=== PATIENT | female | born 1980 | race Caucasian/White ===

== ENCOUNTER 2016-02-27 22:21 | Emergency (ER) | payer MEDICAID ==
[2016-02-27 23:57] VITALS: BP 145/107
[2016-02-28 04:02] LABS: Bilirubin,Urine NEG (Negative); Blood,Urine LG (Negative); Ketones,Urine NEG (Negative); Leukocyte Esterase,Urine LG (Negative); Mucus,Urine 1+ /HPF; Nitrite,Urine POS (Negative); Urobilinogen,Urine < 2.0 mg/dL (<2.0)
[2016-02-28 04:08] LABS: RBC,Urine > 182.0 /HPF (0.0-6.0); WBC,Urine > 182.0 /HPF (0.0-6.0)
== END 2016-02-28 19:00 | disposition left against medical advice (07) ==
LOC: ED 22:21
DX: R10.9 Unspecified abdominal pain (principal); Z53.21 Procedure and treatment not carried out due to patient leaving prior to being seen by health care provider
CPT/HCPCS: 81001; 81025

== ENCOUNTER 2016-03-26 11:03 | Outpatient (CLI) | payer MEDICAID ==
--- NOTE | 2016-03-26 15:16 | Mammography Report ---
BILATERAL DIGITAL SCREENING MAMMOGRAM with CAD: 03/26/16 11:03:00 CLINICAL: Baseline screening.History of bilateral reduction mammoplasty. FINDINGS: There are bilateral scattered areas of fibroglandular density.Minimal bilateral benign scar.No mass, architectural distortion or suspicious calcifications. IMPRESSION: No mammographic evidence of malignancy. BI-RADS CATEGORY: 2 - - Benign RECOMMENDATION: Routine mammographic screening in one year. COMMENT: Patient follow-up letters are generated by our [employer] application.
== END 2016-03-26 11:04 | disposition home or self-care (01) ==
LOC: SPVWC 11:03
PROVIDERS: ATTEND Family Medicine
DX: Z12.31 Encounter for screening mammogram for malignant neoplasm of breast (principal)
CPT/HCPCS: 77067; G0202

== ENCOUNTER 2019-04-03 11:00 | Outpatient (CLI) | payer MEDICAID | END 2019-04-03 11:01 | disposition home or self-care (01) | LOC: SLR 11:00 | PROVIDERS: ATTEND Otolaryngology | DX: G47.33 Obstructive sleep apnea (adult) (pediatric) (principal) | CPT/HCPCS: G0399 ==

== ENCOUNTER 2020-01-04 08:56 | Outpatient (CLI) | payer MEDICAID ==
--- NOTE | 2020-01-04 13:16 | Fluoroscopy Report ---
Upper GI HISTORY: K30 FUNCTIONAL DYSPEPSIA. Preoperative evaluation for bariatric surgery Technique: Single and double contrast barium technique utilized to evaluate the esophagus, stomach, and duodenal C-loop. Findings: To begin the exam, swallowing was evaluated in the lateral position under direct fluorosco py. Swallowing was normal. No mucosal irregularity, mass, mass effect, or critical stenosis. There were occasional abnormal te rtiary contractions as seen with dysmotility. There was severe gastroesophageal reflux reaching the u pper esophagus. Impression: Severe gastroesophageal reflux and mild esophageal dysmotility. Fluoroscopic time: 1.3 minutes Number of fluoroscopic images: 16 Signer Name: Eric Livingston MD Signed: 01/04/2020 1:12 PM Workstation Name: [id number]
== END 2020-01-04 08:57 | disposition home or self-care (01) ==
LOC: FLUORO 08:56
PROVIDERS: ATTEND Surgery
DX: K21.00 Gastro-esophageal reflux disease with esophagitis, without bleeding (principal)
CPT/HCPCS: 74246

== ENCOUNTER 2020-01-09 06:35 | Day surgery (SDC) | payer MEDICAID ==
[2020-01-09] MEDS ORDERED: SODIUM CHLORIDE 0.9% 1000 ML 1,000 ML IV SCH (07:00)
[2020-01-09] MEDS ORDERED: WATER FOR IRRIG STERILE 250 ML BOTTLE IR ONE (07:38)
[2020-01-09] MEDS ORDERED: WATER FOR IRRIG STERILE 1,000 ML BOTTLE ONE (07:38)
--- NOTE | 2020-01-09 07:40 | Anesthesia Consultation ---
Anesthesia Consult and Med Hx Date of service: 01/09/20 - Airway Anesthetic Teeth Evaluation: Crowns ROM Head & Neck: Adequate Mental/Hyoid Distance: Adequate Mallampati Class: Class II Intubation Access Assessment: Probably Good - Pre-Operative Health Status ASA Pre-Surgery Classification: ASA3 Proposed Anesthetic Plan: MAC - Pulmonary Hx Smoking: No Hx Asthma: No Hx Respiratory Symptoms: No SOB: No COPD: No Home Oxygen Therapy: No Hx Pneumonia: No Hx Sleep Apnea: Yes - Cardiovascular System Hx Hypertension: No Hx Coronary Artery Disease: No Hx Heart Attack/AMI: No Hx Angina: No Hx Percutaneous Transluminal Coronary Angioplasty (PTCA): No Hx Cardia Arrhythmia: No Hx Pacemaker: No Hx Internal Defibrillator: No Hx Valvular Heart Disease: No Hx Heart Murmur: No Hx Peripheral Vascular Disease: No - Central Nervous System Hx Neuromuscular Disorder: No Hx Seizures: No CVA: No Hx Back Pain: No Hx Psychiatric Problems: Yes (anexity ) - Gastrointestinal Hx Ulcer: No Hx Gastroesophageal Reflux Disease: Yes - Endocrine Hx Renal Disease: No Hx End Stage Renal Disease: No Hx Cirrhosis: No Hx Liver Disease: No Hx Insulin Dependent Diabetes: No Hx Non-Insulin Dependent Diabetes: No Hx Thyroid Disease: No Hx Hypothyroidism: No Hx Hyperthyroidism: No - Hematic Hx Anemia: No Hx Sickle Cell Disease: No - Other Systems Hx Alcohol Use: No Hx Substance Use: No Hx Cancer: No Hx Obesity: Yes
--- NOTE | 2020-01-09 07:41 | Anesthesia Day of Surgery ---
Anesthesia Day of Surgery - Day of Surgery Patient Examined: Yes Patient H&P Reviewed: Yes Patient is NPO: Yes
[2020-01-09] MEDS ORDERED: LIDOCAINE MPF (2%) 20 MG/1 ML VIAL 5 ML ONE (08:21)
[2020-01-09] MEDS ORDERED: propofoL 200 MG/20 ML VIAL IV ONE ×2 (08:21→08:52)
--- NOTE | 2020-01-09 08:38 | Discharge Summary ---
Providers - Providers Date of Admission: 01/09/2020 Date of discharge: 01/09/20 Attending physician: KYLE BAR MD Primary care physician: ALLYSSA CERVANTES Hospitalization Reason for admission: EGD Condition: Good Procedures: EGD Hospital course: Pt presented for a pre-op EGD for up coming bariatric surgery. She had an uncomplicated procedure and was discharged to home. Disposition: DC-01 TO HOME OR SELFCARE Core Measure Documentation - Palliative Care Palliative Care/ Comfort Measures: Not Applicable - Core Measures Any of the following diagnoses?: none Exam - Physical Exam Narrative exam: unchanged from pre-op Plan Activity: no restrictions Diet: low carbohydrate Follow up with: ALLYSSA CERVANTES MD [Primary Care Provider] - 7 Days
[2020-01-09] MEDS ORDERED: FAMOTIDINE 20 MG/2 ML INJ IV ONE (08:41)
--- NOTE | 2020-01-09 08:41 | Operative Report ---
Operative Report Operative Report: DATE 01/09/2020 SURGERY: Upper endoscopy. SURGEON: Shiloh Nix M.D. PROCEDURE: EGD with biopsy PRE OP DX: morbid obesity, GERD POST OP DX: morbid obesity, GERD, gastritis TYPE OF ANESTHESIA: MAC. ESTIMATED BLOOD LOSS: None. COMPLICATIONS: None. SPECIMENS REMOVED: antral biopsy FINDINGS: 1. Small hiatal hernia. 2. Otherwise, normal esophagus, stomach and first portion of duodenum, gastritis. INDICATIONS:INDICATION FOR PROCEDURE: Patient is a 39-year-old female with a long history of morbid obesity. She is planned to have a weight loss procedure and is here for preoperative planning EGD. PROCEDURE DETAILS: After consent was reviewed, patient was taken back to the operating room where patient was placed in the left lateral decubitus position and a bite block was placed in the mouth. After a time-out was called, MAC anesthesia was initiated. I then passed the endoscope into her oropharynx, into her esophagus, visualized the entire esophagus, which was all within normal limits. I then visualized the stomach and the first portion of the duodenum and there were no abnormalities I could clearly visualize with the exception of mild gastritis. A cold forceps biopsy of the antrum was taken and will be sent to pathology to evaluate for H.pylori. I then retroflexed the scope in the stomach and visualized the hiatus and I could see a small hiatal hernia. I then desufflated the stomach and removed the endoscope. Patient tolerated procedure well and was transferred to recovery room in good and stable condition.
[2020-01-09 09:25] VITALS: BP 101/62
[2020-01-09] MEDS ORDERED: FAMOTIDINE 20 MG/2 ML INJ IV SCH (10:00)
--- NOTE | 2020-01-09 10:25 | Post Anesthesia Evaluation ---
- Post Anesthesia Evaluation Patient Participated: Yes Airway Patent: Yes Stable Respiratory Function: Yes Nausea/Vomiting: No Temp > 96.8F: Yes Pain Manageable: Yes Adequeate Hydration: Yes Anesthesia Complications: No
== END 2020-01-09 10:05 | disposition home or self-care (01) ==
LOC: GIO 06:35
PROVIDERS: ATTEND Surgery
DX: K21.9 Gastro-esophageal reflux disease without esophagitis (principal); E66.01 Morbid (severe) obesity due to excess calories; K44.9 Diaphragmatic hernia without obstruction or gangrene; K29.70 Gastritis, unspecified, without bleeding; E78.00 Pure hypercholesterolemia, unspecified; K31.89 Other diseases of stomach and duodenum; F32.9 Major depressive disorder, single episode, unspecified; F41.9 Anxiety disorder, unspecified; G47.30 Sleep apnea, unspecified; Z90.710 Acquired absence of both cervix and uterus; Z98.890 Other specified postprocedural states; Z68.41 Body mass index [BMI] 40.0-44.9, adult
CPT/HCPCS: 43239; 88305; J2704; J7030